=== PATIENT | female | born 1950 | race Hispanic/Latino ===

== ENCOUNTER 2017-03-08 09:52 | Emergency (ER) | payer OTHER ==
[2014-07-30 12:04] VITALS: BMI 27.4
[2017-03-08 09:58] VITALS: BP 165/79; PULSE 74; RESP 18; TEMP 98; O2SAT 96
--- NOTE | 2017-03-08 10:41 | C.PDOC ---
History Of Present Illness 66yr old female with PMHx of asthma, employee of [employer], presents to the ER with complaints of redness, itch and heaviness to the left eye. Patient states she is a nurse in the OR and was sent down to the ER to rule out conjunctivitis. Patient denies fever, chills, ear pain, sore throat, chest pain , SOB or headache. Time Seen by Provider: 03/08/17 10:05 Chief Complaint (Nursing): Eye Problem History Per: Patient History/Exam Limitations: no limitations Onset/Duration Of Symptoms: Days Current Symptoms Are (Timing): Still Present Injury To Eye?: No Past Medical History Reviewed: Historical Data, Nursing Documentation, Vital Signs Vital Signs: Last Vital Signs Temp 98 F 03/08/17 09:55 Pulse 74 03/08/17 09:55 Resp 18 03/08/17 09:55 BP 165/79 H 03/08/17 09:55 Pulse Ox 96 03/08/17 10:41 - Medical History PMH: Asthma (NEVER HOSPITALIZED) - [facility] OTHER LOCAL DESTRUC SKIN (07/31/14) Family History: States: No Known Family Hx - Social History Hx Alcohol Use: No Hx Substance Use: No - Immunization History Hx Tetanus Toxoid Vaccination: Yes Hx Influenza Vaccination: Yes Hx Pneumococcal Vaccination: No Review Of Systems Except As Marked, All Systems Reviewed And Found Negative. Constitutional: Negative for: Fever, Chills Eyes: Positive for: Other (Redness, itch and heaviness to the left eye) ENT: Negative for: Ear Pain, Throat Pain Cardiovascular: Negative for: Chest Pain Respiratory: Negative for: Shortness of Breath Neurological: Negative for: Headache Physical Exam - Physical Exam Appears: Non-toxic, No Acute Distress Skin: Warm, Dry, No Rash Head: Atraumatic, Normacephalic Eye(s): bilateral: PERRL, EOMI, right: Normal Inspection, left: Other (Redness and tearing to the eye) Ear(s): Bilateral: Normal Oral Mucosa: Moist Neck: Normal, Normal ROM, Supple Cardiovascular: Rhythm Regular, No Murmur Respiratory: Normal Breath Sounds, No Rales, No Rhonchi, No Stridor, No Wheezing Extremity: Normal ROM, No Swelling Neurological/Psych: Oriented x3, Normal Speech ED Course And Treatment O2 Sat by Pulse Oximetry: 96 (RA) Pulse Ox Interpretation: Normal Disposition Counseled Patient/Family Regarding: Diagnosis, Need For Followup, Rx Given - Disposition Disposition: HOME/ ROUTINE Disposition Time: 10:39 Condition: STABLE Additional Instructions: Follow up with your doctor. return to the ED with any further concerns. Prescriptions: Neomycin/Polymyxin/Hydrocortis [Cortisporin Otic Susp] 3 drop TOP TID #1 bottle Instructions: Conjunctivitis (ED) Forms: General Discharge Instructions, [facility] (Azeri), Work Excuse - POA Present On Arrival: None - Clinical Impression Clinical Impression: Conjunctivitis - Scribe Statement The provider has reviewed the documentation as recorded by the Brennen Butler Provider Attestation: All medical record entries made by the Brennen were at my direction and personally dictated by me. I have reviewed the chart and agree that the record accurately reflects my personal performance of the history, physical exam, medical decision making, and the department course for this patient. I have also personally directed, reviewed, and agree with the discharge instructions and disposition.
== END 2017-03-08 10:45 | disposition home or self-care (01) ==
LOC: C.ER 09:52
DX: H10.9 Unspecified conjunctivitis (principal)